=== PATIENT | male | born 1940 | race Caucasian/White ===

== ENCOUNTER 2018-01-13 15:17 | Observation (INO) | payer OTHER ==
--- NOTE | 2018-01-13 16:33 | RAD REPORT ---
EXAM DESCRIPTION: RAD - Chest Single View - 01/13/2018 4:24 pm CLINICAL HISTORY: syncope Chest pain. COMPARISON: No comparisons FINDINGS: Portable technique limits examination quality. The lungs are emphysematous but grossly clear. The heart is normal in size. No displaced fractures. IMPRESSION: Mild COPD.
--- NOTE | 2018-01-13 16:49 | RAD REPORT ---
EXAM DESCRIPTION: CT - Head Brain Wo Cont - 01/13/2018 4:34 pm CLINICAL HISTORY: SYNCOPE Dizziness, drowsiness COMPARISON: No comparisons TECHNIQUE: All CT scans are performed using dose optimization technique as appropriate and may inclu de automated exposure control or mA/KV adjustment according to patient size. FINDINGS: No intracranial hemorrhage, hydrocephalus or extra-axial fluid collection.No areas of brai n edema or evidence of midline shift. Mild fluid is seen in the ethmoid air cells and sphenoid sinus. The paranasal sinuses and mastoids ar e otherwise clear. The calvarium is intact. IMPRESSION: No acute intracranial abnormality.
[2018-01-13 16:51] LABS: Absolute Lymphocytes (CBC) 1.4 K/uL (0.7-4.9); Absolute Monocytes 0.6 K/uL (0.1-1.3); Absolute Neutrophil 7.2 K/uL (1.8-8.0); Basophils % 0.6 % (0-1.3); Eosinophils % 1.6 % (0-4.4); Hematocrit 36.4 % (39.6-49.0); Lymphocytes % 14.7 % (15.3-44.8); MCV 96.3 fL (80-100); MPV 8.8 fL (7.6-11.3); Monocytes % 6.8 % (3.3-12.3); RBC Red Blood Cell Count 3.78 M/uL (4.33-5.43)
[2018-01-13 16:52] LABS: Protime INR 0.95
[2018-01-13 17:04] LABS: ALT/SGPT 13 U/L (12-78); AST/SGOT 18 U/L (15-37); Albumin 3.1 g/dL (3.4-5.0); Alkaline Phosphatase 93 U/L (45-117); BUN Blood Urea Nitrogen 15 mg/dL (7-18); Bicarbonate 28 mmol/L (21-32); Bilirubin Direct 0.2 mg/dL (0-0.2); Bilirubin Total 0.3 mg/dL (0.2-1.0); Glucose Level 107 mg/dL (74-106); Magnesium 1.9 mg/dL (1.8-2.4); NT PRO-BNP 150 pg/mL (<450); Potassium 3.5 mmol/L (3.5-5.1); Protein, Total 7.6 g/dL (6.4-8.2); Sodium Level 139 mmol/L (136-145); Troponin (Emerg Dept Use Only) < 0.02 ng/mL (0.0-0.045)
--- NOTE | 2018-01-13 17:20 | EDPHYS ---
Physician Documentation [facility] Name: Jose Moncada Age: 77 yrs Sex: Male : 1940 Arrival Date: 01/13/2018 Time: 15:26 Bed 23 Private MD: Zhou Milner R ED Physician Tony Dunbar HPI: 01/13 15:50 This 77 yrs old Male presents to ER via EMS with complaints of Dizziness. cp 15:50 The patient presents with dizziness, lightheadedness. Onset: The symptoms/episode cp began/occurred today. Associated signs and symptoms: Pertinent positives: syncope, Pertinent negatives: abdominal pain, chest pain, diaphoresis, focal weakness, numbness, palpitations, seizure, shortness of breath, vomiting. Severity of symptoms: in the emergency department the symptoms have resolved. Patient's baseline: Neuro: alert and fully oriented, Motor: no deficits, Ambulation: walks without assistance, Speech: normal. Historical: - Allergies: 15:28 No Known Allergies; ed1 - Home Meds: 15:28 None [Active]; ed1 - PMHx: 15:28 None; ed1 - PSHx: 15:28 Appendectomy; eye surgery; skin cancer removal; ed1 - Immunization history:: Adult Immunizations up to date. - Social history:: Smoking status: Patient uses tobacco products, smokes one pack cigarettes per day. - Ebola Screening: : Patient negative for fever greater than or equal to 101.5 degrees Fahrenheit, and additional compatible Ebola Virus Disease symptoms Patient denies exposure to infectious person Patient denies travel to an Ebola-affected area in the 21 days before illness onset No symptoms or risks identified at this time. ROS: 15:55 Constitutional: Negative for body aches, chills, fever, poor PO intake. cp 15:55 Eyes: Negative for injury, pain, redness, and discharge. cp 15:55 ENT: Negative for drainage from ear(s), ear pain, sore throat, difficulty swallowing, difficulty handling secretions. 15:55 Cardiovascular: Negative for chest pain, edema, palpitations. 15:55 Respiratory: Negative for cough, shortness of breath, wheezing. 15:55 Abdomen/GI: Negative for abdominal pain, nausea, vomiting, and diarrhea, black/tarry stool, rectal bleeding. 15:55 Back: Negative for pain at rest, pain with movement. 15:55 : Negative for urinary symptoms. 15:55 Skin: Negative for cellulitis, rash. 15:55 Neuro: Positive for dizziness, syncope, Negative for altered mental status, gait disturbance, headache, seizure activity, weakness. 15:55 All other systems are negative. Exam: 16:00 ECG was reviewed by the Attending Physician. cp 16:02 Constitutional: The patient appears in no acute distress, alert, awake, cp non-diaphoretic, non-toxic, well developed, well nourished. 16:02 Head/Face: Normocephalic, atraumatic. Eyes: Pupils equal round and reactive to light, cp extra-ocular motions intact. Lids and lashes normal. Conjunctiva and sclera are non-icteric and not injected. Cornea within normal limits. Periorbital areas with no swelling, redness, or edema. ENT: Nares patent. No nasal discharge, no septal abnormalities noted. Tympanic membranes are normal and external auditory canals are clear. Oropharynx with no redness, swelling, or masses, exudates, or evidence of obstruction, uvula midline. Mucous membranes moist. Neck: Trachea midline, no thyromegaly or masses palpated, and no cervical lymphadenopathy. Supple, full range of motion without nuchal rigidity, or vertebral point tenderness. No Meningismus. Chest/axilla: Normal chest wall appearance and motion. Nontender with no deformity. No lesions are appreciated. 16:02 Cardiovascular: Rate: normal, Rhythm: regular, Pulses: Pulses are 2+ in right radial artery and left radial artery. Heart sounds: murmur, not appreciated, Edema: is not appreciated, JVD: is not appreciated. 16:02 Respiratory: the patient does not display signs of respiratory distress, Respirations: normal, no use of accessory muscles, no retractions, no splinting, no tachypnea, labored breathing, is not present, Breath sounds: are clear throughout, no decreased breath sounds, no stridor, no wheezing. 16:02 Abdomen/GI: Inspection: abdomen appears normal, Bowel sounds: active, all quadrants, Palpation: abdomen is soft and non-tender, in all quadrants, rebound tenderness, is not appreciated, involuntary guarding, is elicited in all quadrants. 16:02 Back: pain, is absent, ROM is normal. 16:02 Skin: cellulitis, is not appreciated, rash 16:02 Neuro: Orientation: is normal, Mentation: is normal, Memory: is normal, Cerebellar function: is grossly normal, Motor: moves all fours, strength is normal, Sensation: is normal. Vital Signs: 15:28 BP 149 / 94; Pulse 82; Resp 14; Temp 98(O); Pulse Ox 99% on R/A; Weight 68.04 kg (R); ed1 Height 5 ft. 11 in. (180.34 cm) (R); Pain 0/10; 15:56 BP 131 / 85 LA Supine (auto/reg); Pulse 82; Resp 18; ed1 15:56 BP 118 / 85 LA Sitting (auto/reg); Pulse 88; ed1 15:57 BP 120 / 80 LA Standing (auto/reg); Pulse 95; ed1 16:53 BP 142 / 88; Pulse 85; Resp 17; Pulse Ox 97% on R/A; Pain 0/10; ed1 15:28 Body Mass Index 20.92 (68.04 kg, 180.34 cm) ed1 MDM: 15:43 Patient medically screened. cp 16:00 Differential diagnosis: cardiac arrhythmia, generalized weakness, hypovolemia, cp idiopathic dizziness, sepsis, TIA, vertigo. 17:18 Physician consultation: Zhou Milner MD was called at 17:18, was contacted at 17:18, regarding admission, to the telemetry unit. patient's condition, would like consultation with Dr. Fernandez. 17:20 Data reviewed: vital signs, nurses notes, lab test result(s), EKG, radiologic studies, cp CT scan, plain films. 17:20 Test interpretation: by ED physician or midlevel provider: ECG, plain radiologic cp studies. Counseling: I had a detailed discussion with the patient and/or guardian regarding: the historical points, exam findings, and any diagnostic results supporting the discharge/admit diagnosis, lab results, radiology results. 01/13 16:01 Order name: Basic Metabolic Panel; Complete Time: 17:05 cp 01/13 17:06 Interpretation: Normal except: GLUC 107; GFR 65. cp 01/13 16:01 Order name: CBC with Diff; Complete Time: 17:05 cp 01/13 17:06 Interpretation: Normal except: RBC 3.78; HGB 12.5; HCT 36.4; RDW 17.8; ROJELIO% 76.3; LYM% cp 14.7. 01/13 16:01 Order name: LFT's; Complete Time: 17:05 cp 01/13 17:18 Interpretation: Normal except: ALB 3.1; GLOB 4.5; A/G 0.7. cp 01/13 16:01 Order name: Magnesium; Complete Time: 17:05 cp 01/13 16:01 Order name: NT PRO-BNP; Complete Time: 17:05 cp 01/13 16:01 Order name: PT-INR; Complete Time: 17:05 cp 01/13 16:01 Order name: Troponin (emerg Dept Use Only); Complete Time: 17:05 cp 01/13 16:01 Order name: XRAY Chest (1 view); Complete Time: 16:49 cp 01/13 16:49 Interpretation: Report review. cp 01/13 16:01 Order name: CT Head Brain wo Cont; Complete Time: 16:50 cp 01/13 16:50 Interpretation: Report reviewed. cp 01/13 18:58 Order name: Urine Microscopic Only ed1 01/13 19:09 Order name: Urine Dipstick--Ancillary (enter results) ms 01/13 19:24 Order name: Urine Dipstick-Ancillary; Complete Time: 05:27 EDMS 01/13 19:34 Order name: Urine Microscopic Only; Complete Time: 05:27 EDMS 01/13 15:42 Order name: Orthostatics; Complete Time: 15:57 cp 01/13 15:42 Order name: EKG; Complete Time: 15:43 cp 01/13 15:42 Order name: EKG - Nurse/Tech; Complete Time: 15:57 cp 01/13 16:01 Order name: Cardiac monitoring; Complete Time: 16:03 cp 01/13 16:01 Order name: IV Saline Lock; Complete Time: 16:02 cp 01/13 16:01 Order name: Labs collected and sent; Complete Time: 16:22 cp 01/13 16:01 Order name: O2 Per Protocol; Complete Time: 16:02 cp 01/13 16:01 Order name: O2 Sat Monitoring; Complete Time: 16:02 cp 01/13 17:19 Order name: Urine Dipstick-Ancillary (obtain specimen); Complete Time: 18:57 cp EC:00 Rate is 79 beats/min. Rhythm is regular. WA interval is normal. QRS interval is cp prolonged at 124 msec. QT interval is normal. Interpreted by me. Reviewed by me. Administered Medications: 17:56 Drug: Lovenox 40 mg Route: Sub-Q; Site: right lower abdomen; ed1 18:57 Follow up: Response: No adverse reaction ed1 18:57 Drug: Rocephin - (cefTRIAXone) 1 grams Route: IVPB; Infused Over: 30 mins; Site: right ed1 antecubital; 20:19 Follow up: Response: No adverse reaction; IV Status: Completed infusion ed1 Disposition: 01/14 13:20 Co-signature as Attending Physician, Tony Dunbar MD I agree with the assessment and kdr plan of care. Disposition: 01/13/18 17:19 Hospitalization ordered by Zhou Milner for Observation. Preliminary diagnosis are Syncope and collapse, Urinary tract infection, site not specified. - Bed requested for Telemetry/MedSurg (observation). - Status is Observation. ed1 - Condition is Stable. - Problem is new. - Symptoms have improved. UTI on Admission? Yes Signatures: Dispatcher [employer] EDRI Mini Dominguez RN RN dw Tony Dunbar MD MD [facility] Kelsy Herring LVN [employer]GE ed1 Cornelio Sandhu PA PA cp Corrections: (The following items were deleted from the chart) 01/13 18:47 17:19 Hospitalization Ordered by Zhou Milner MD for Observation. Preliminary diagnosis cp is Syncope and collapse. Bed requested for Telemetry/MedSurg (observation). Status is Observation. Condition is Stable. Problem is new. Symptoms have improved. UTI on Admission? No. cp 19:10 18:47 01/13/2018 17:19 Hospitalization Ordered by Zhou Milner MD for Observation. dw Preliminary diagnosis is Syncope and collapse; Urinary tract infection, site not specified. Bed requested for Telemetry/MedSurg (observation). Status is Observation. Condition is Stable. Problem is new. Symptoms have improved. UTI on Admission? Yes. cp 20:19 19:10 01/13/2018 17:19 Hospitalization Ordered by Zhou Milner MD for Observation. ed1 Preliminary diagnosis is Syncope and collapse; Urinary tract infection, site not specified. Bed requested for Telemetry/MedSurg (observation). Status is Observation. Condition is Stable. Problem is new. Symptoms have improved. UTI on Admission? Yes. dw
--- NOTE | 2018-01-13 17:20 | ER ---
Nurse's Notes [facility] Name: Jose Moncada Age: 77 yrs Sex: Male : 1940 Arrival Date: 01/13/2018 Time: 15:26 Bed 23 Private MD: Zhou Milner R Diagnosis: Syncope and collapse;Urinary tract infection, site not specified Presentation: 01/13 15:26 Presenting complaint: EMS states: He was leaving his apartment and when he was getting ed1 in the car he felt very dizzy and had to sit down. Transition of care: patient was not received from another setting of care. Onset of symptoms was January 13, 2018. Risk Assessment: Do you want to hurt yourself or someone else? Patient reports no desire to harm self or others. Initial Sepsis Screen: Does the patient meet any 2 criteria? No. Patient's initial sepsis screen is negative. Does the patient have a suspected source of infection? No. Patient's initial sepsis screen is negative. Care prior to arrival: IV initiated. 20 GA, in the right antecubital area, Oxygen administered. via nasal cannula. 15:26 Method Of Arrival: EMS: [facility] ed1 15:34 Acuity: EMELY 3 iw Triage Assessment: 15:28 General: Appears in no apparent distress. Behavior is calm, cooperative. Pain: Denies ed1 pain. Neuro: Level of Consciousness is awake, alert, obeys commands, Oriented to person, place, time, situation, Reports dizziness. Historical: - Allergies: 15:28 No Known Allergies; ed1 - Home Meds: 15:28 None [Active]; ed1 - PMHx: 15:28 None; ed1 - PSHx: 15:28 Appendectomy; eye surgery; skin cancer removal; ed1 - Immunization history:: Adult Immunizations up to date. - Social history:: Smoking status: Patient uses tobacco products, smokes one pack cigarettes per day. - Ebola Screening: : Patient negative for fever greater than or equal to 101.5 degrees Fahrenheit, and additional compatible Ebola Virus Disease symptoms Patient denies exposure to infectious person Patient denies travel to an Ebola-affected area in the 21 days before illness onset No symptoms or risks identified at this time. Screenin:29 Abuse screen: Denies threats or abuse. Denies injuries from another. Nutritional ed1 screening: No deficits noted. Tuberculosis screening: No symptoms or risk factors identified. Fall Risk None identified. Assessment: 15:29 General: Appears in no apparent distress. Behavior is calm, cooperative. Pain: Denies ed1 pain. Neuro: Level of Consciousness is awake, alert, obeys commands, Oriented to person, place, time, situation, Reports dizziness, Denies weakness blurred vision headache. Cardiovascular: Denies chest pain, Heart tones S1 S2 present. Respiratory: Airway is patent Respiratory effort is even, unlabored, Respiratory pattern is regular, symmetrical, Breath sounds are clear bilaterally. GI: Patient currently denies diarrhea, nausea, vomiting. : No signs and/or symptoms were reported regarding the genitourinary system. EENT: No signs and/or symptoms were reported regarding the EENT system. Derm: Skin is intact, is thin, with poor turgor Skin is dry, Skin is normal, Skin temperature is warm. Musculoskeletal: Circulation, motion, and sensation intact. 15:32 General: The previous assessment is accurate, call light remains within reach. ss 16:53 Reassessment: Patient appears in no apparent distress at this time. No changes from ed1 previously documented assessment. Patient and/or family updated on plan of care and expected duration. Pain level reassessed. Patient is alert, oriented x 3, equal unlabored respirations, skin warm/dry/pink. Patient denies pain at this time. 17:31 Reassessment: Pt reports that he self cath's. ed1 Vital Signs: 15:28 BP 149 / 94; Pulse 82; Resp 14; Temp 98(O); Pulse Ox 99% on R/A; Weight 68.04 kg (R); ed1 Height 5 ft. 11 in. (180.34 cm) (R); Pain 0/10; 15:56 BP 131 / 85 LA Supine (auto/reg); Pulse 82; Resp 18; ed1 15:56 BP 118 / 85 LA Sitting (auto/reg); Pulse 88; ed1 15:57 BP 120 / 80 LA Standing (auto/reg); Pulse 95; ed1 16:53 BP 142 / 88; Pulse 85; Resp 17; Pulse Ox 97% on R/A; Pain 0/10; ed1 15:28 Body Mass Index 20.92 (68.04 kg, 180.34 cm) ed1 ED Course: 15:26 Patient arrived in ED. ed1 15:26 Zhou Milner MD is Private Physician. ed1 15:28 Arm band placed on right wrist. ed1 15:29 Patient has correct armband on for positive identification. Placed in gown. Bed in low ed1 position. Call light in reach. Side rails up X2. quality assurance monitor chassis on. Pulse ox on. NIBP on. 15:29 Maintain EMS IV. Dressing intact. Good blood return noted. Site clean \T\ dry. Gauge \T\ ed 1 site: 20g right a/c. 15:34 Triage completed. iw 15:42 Cornelio Sandhu PA is PHCP. cp 15:42 Tony Dunbar MD is Attending Physician. cp 15:45 Kelsy Herring LVN is Primary Nurse. ed1 15:59 EKG done, by clinical dental technician. reviewed by Cornelio RADER. sm3 16:22 X-ray completed. Portable x-ray completed in exam room. Patient tolerated procedure ml well. 16:24 XRAY Chest (1 view) In Process Unspecified. EDMS 16:34 CT Head Brain wo Cont In Process Unspecified. EDMS 17:19 Zhou Milner MD is Hospitalizing Provider. cp 20:18 No provider procedures requiring assistance completed. Patient admitted, IV remains in ed1 place. intact, No redness/swelling at site. Administered Medications: 17:56 Drug: Lovenox 40 mg Route: Sub-Q; Site: right lower abdomen; ed1 18:57 Follow up: Response: No adverse reaction ed1 18:57 Drug: Rocephin - (cefTRIAXone) 1 grams Route: IVPB; Infused Over: 30 mins; Site: right ed1 antecubital; 20:19 Follow up: Response: No adverse reaction; IV Status: Completed infusion ed1 Outcome: 17:19 Decision to Hospitalize by Provider. cp 20:18 Admitted to Tele accompanied by tech, family with patient, via stretcher, room 231, ed1 with chart, Report called to LEOLA Garduno 20:18 Condition: stable 20:18 Discharge instructions given to patient, family, Instructed on the need for admit, Demonstrated understanding of instructions. 20:19 Patient left the ED. ed1 Signatures: Dispatcher [employer] Catia Sanchez RN RN iw Lopez, Melissa ml Smirch, Maryellen, RN RN ss Kelsy Herring, STRUCTURAL RIGGER STRUCTURAL RIGGER ed1 Cornelio Sandhu PA PA cp Montes, Shakira 3
[2018-01-13] MEDS ORDERED: ENOXAPARIN 40 MG/0.4 ML SQ ONE (18:00)
[2018-01-13] MEDS ORDERED: ONDANSETRON 4 MG/2 ML VIAL IV PRN (18:05)
[2018-01-13] MEDS ORDERED: CEFTRIAXONE/SWI 1gm 1 GM/10 ML SYR ONE (18:56)
[2018-01-13 19:24] LABS: Urine Blood 2+ (NEG); Urine Glucose NEGATIVE (NEG); Urine Protein 2+ (NEG); Urine Specific Gravity 1.025 (1.005-1.030); Urine pH 5.5 (5.0-7.0)
[2018-01-13 19:33] LABS: Urine Bacteria >50 /HPF (NONE SEEN); Urine RBC <5 /HPF (NONE SEEN)
[2018-01-13 19:34] LABS: Urine Culture Reflex Order REFLEXED; Urine Mucus SLIGHT /HPF (NONE SEEN)
[2018-01-13] MEDS: ACETAMINOPHEN 500 MG TAB PO PRN (21:03)
--- NOTE | 2018-01-13 23:29 | EKG ---
Test Date: 2018-01-13 Test Time: 15:54:12 Writing Tutor: GEORGES MEASUREMENT RESULTS: Intervals: Rate: 79 SC: 156 QRSD: 124 QT: 428 QTc: 490 [place]bec: P: 70 SC: 156 QRS: 48 T: 47 INTERPRETIVE STATEMENTS: Normal sinus rhythm Incomplete right bundle branch block Borderline ECG Compared to ECG 02/02/2006 21:22:44 Incomplete right bundle branch block now present Electronically Signed On 01-13-18 23:28:11 CDT by Robin Fernandez
[2018-01-14] MEDS: ACETAMINOPHEN 500 MG TAB PO PRN ×3 (04:28→16:30)
[2018-01-14 05:33] LABS: Absolute Monocytes 0.9 K/uL (0.1-1.3); Absolute Neutrophil 6.3 K/uL (1.8-8.0); Basophils % 0.5 % (0-1.3); Eosinophils % 1.8 % (0-4.4); Hematocrit 34.5 % (39.6-49.0); Lymphocytes % 21.3 % (15.3-44.8); MCH 33.3 pg (27.0-35.0); MCV 96.8 fL (80-100); Monocytes % 9.2 % (3.3-12.3); RBC Red Blood Cell Count 3.57 M/uL (4.33-5.43)
[2018-01-14 05:41] LABS: Potassium 3.5 mmol/L (3.5-5.1)
--- NOTE | 2018-01-14 08:26 | RAD REPORT ---
EXAM DESCRIPTION: - CP - 01/13/2018 10:41 pm CLINICAL HISTORY: Syncope COMPARISON: None. TECHNIQUE: Real-time sonographic evaluation of both carotid systems was performed. Welch scale and Do ppler interrogation were performed with waveform tracing bilaterally. FINDINGS: Normal high resistance waveforms are noted in both external carotid arteries. The common c arotid arteries and internal carotid arteries show normal low resistance waveforms. Calcified and noncalcified plaquing changes are present in the right carotid bulb. No significant lum inal narrowing at this site. More significant calcified plaquing seen in the right external carotid a rtery. Any resulting external carotid stenosis is generally not clinically significant. Prominent nuris cified plaquing changes in the proximal right internal carotid artery. No significant luminal narrowi ng identifiable. Mild plaquing changes are present in the left common carotid artery near the bulb. N o significant left internal carotid artery plaquing. Peak systolic and end diastolic velocity values and the ICA/CCA ratios are in the non-hemodynamically significant range. Antegrade flow seen in both vertebral arteries. Velocity values and ratios were recorded and are retained in the patient's imaging records. IMPRESSION: Calcified and noncalcified plaquing changes are present more prominent in the right bulb and ICA compared to the left. No left-sided stenosis and the right-sided plaquing changes do not cause hemodynamically significant narrowing.
[2018-01-14] MEDS ORDERED: ASPIRIN EC 81 MG TAB PO SCH (09:00)
[2018-01-14] MEDS ORDERED: CEFTRIAXONE 1 GM/NS 50 ML 1 GM/50 ML BAG IV SCH (09:00)
[2018-01-14] MEDS ORDERED: CEFTRIAXONE/SWI 1gm 1 GM/10 ML SYR IV SCH (09:00)
--- NOTE | 2018-01-14 14:07 | CON ---
History Of Present Illness: Mr. Moncada is in the hospital because he fainted. He did not eat much breakfast. There was a piece of pecan pie, did not drink much. Got called by a family member, so he went to the gate to open it up, so she could get into his house. [place] As he was waiting at the gate, he was standing still and felt himself get dizzy, fell to the ground, wo ke up immediately. No tonic-clonic motion, and since he has been in our hospital, he has had an EKG that is unremarkable, carotid Doppler, CAT scan of the head, telemetry that is within normal limits. All his troponins are normal. The patient does not have diabetes, hypertension. No history of stro ke, myocardial infarction, vascular disease. Takes no medications. He has had several falling and f ainting spells over the last several years, but seemed extremely unlikely to start using a cane or a walker or take any precautions. His last fall was roughly 1 week ago. He injured his knees and he i s asking me to please order a knee x-ray. Physical Examination: General: He is 5 feet 11 inches, 149 pounds. He is not emaciated, but he is quite thin. Alert, estephanie ented, pleasant, not in distress. Neck: No carotid bruit. Lungs: Clear. Heart: Within normal limits. Abdomen: Soft. Extremities: No cyanosis, clubbing, or edema. Distal pulses are normal. Impression: Mr. Moncada fainted because of relative dehydration, standing in the heat. I do not thi nk there is a cardiac or a neurological cause of syncope, but basically vascular collapse. I do not think any further cardiac workup is indicated at this point. I believe the patient could be discharg ed whenever Dr. Hood is ready. I took the liberty of ordering knee x-rays, mostly at the patient's r equest. Two views of both knees will be ordered and reviewed by the radiologist. Thank you very much for your kind referral of Mr. Moncada. I will follow him with you. ANTOLIN/FAUZIA Voice ID: [id number] Report ID: [id number]
--- NOTE | 2018-01-14 15:56 | RAD REPORT ---
EXAM DESCRIPTION: RAD - Knee Left 3 View - 01/14/2018 3:32 pm CLINICAL HISTORY: Knee pain COMPARISON: None. FINDINGS: No fracture, dislocation or periosteal reaction.Small joint effusion is seen. Slight narro wing of the medial compartment noted. Prominent meniscal calcifications are present. Spurring is pres ent at the quadriceps tendon attachment site. No suspicious soft tissue finding. IMPRESSION: Minimal joint effusion with no acute bone or joint finding. Degenerative change is present in the joint and meniscal tissue. Clinical concerns for internal derangement or occult bony injury could be further assessed with MR im aging.
--- NOTE | 2018-01-14 15:58 | RAD REPORT ---
EXAM DESCRIPTION: RAD - Knee Right 3 View - 01/14/2018 3:32 pm CLINICAL HISTORY: Knee pain COMPARISON: None. FINDINGS: No fracture, dislocation or periosteal reaction.No joint effusion seen. Very minimal narro wing of the medial compartment noted. No abnormal spurring seen. Proximal fibula shows evidence for o ld fracture remodeling. No meniscal calcifications or other internal joint abnormality evident. IMPRESSION: No acute bone or joint finding. Minimal degenerative change. Clinical concerns for internal derangement or occult bony injury could be further assessed with MR im aging.
--- NOTE | 2018-01-15 00:36 | HP ---
Date of Admission: 01/13/2018 Chief Complaint: Dizziness, near syncope. History Of Present Illness: This patient while trying to get up and walk to the car, felt dizzy and almost passed out. Ever since the patient had no further symptoms. The patient was seen in the [facility] room. He had a CAT scan of the head, chest x-ray, and carotid ultrasound. The patient has charla e right-sided block, however, it is not significant hemodynamically. The patient claims to have had similar episode few weeks before this particular episode. The patient is on no medication currently. He does not have any chest pain, shortness of breath, or other symptoms. Past Medical History: History of prostatic issues. Surgical History: Positive for appendectomy, skin cancer surgery, and eye surgery. Allergies: NONE. Home Medicines: None. Review of Systems: No history of fever, chills, rigors. Physical Examination: General: Revealed 77-year-old male, fully alert, ambulating. HEENT: Otherwise negative. Neck: Supple. JVD negative. Carotids, good upstroke. No bruit. Chest: Clear. Heart: Regular. Abdomen: Soft. Extremities: No edema. Neurological: Negative. Laboratory: Chem profile and CBC negative. CAT scan of the head, chest, carotid ultrasound normal. Urinalysis showed evidence of pyuria and bacteriuria. Assessment: 1.Dizziness and near syncope. 2.History of chronic prostatic issues. Plan: The patient is due to have echocardiogram and x-ray of the knees, after which the patient's fu rther management will be decided. YONAS/FAUZIA Voice ID: [id number]
== END 2018-01-14 18:26 | disposition home or self-care (01) ==
LOC: ER 15:17 → ERHOLD 17:34 → 2ND 19:44
PROVIDERS: ADMIT Internal Medicine; ATTEND Internal Medicine
DX: R42 Dizziness and giddiness (principal); R55 Syncope and collapse
CPT/HCPCS: 36415; 70450; 71045; 73562 ×2; 80048 ×2; 80076; 83735; 83880; 84484 ×3; 85025 ×2; 85610; 87077; 87086; 87088; 87186; 93005; 93880; 96365; 96372; 99285; G0378 ×2; J0696; J1650; 81003; 81015

== ENCOUNTER 2019-08-15 06:41 | Day surgery (SDC) | payer OTHER ==
[2019-08-14 10:40] LABS: Basophils % 1.1 % (0-1.3); Hematocrit 40.6 % (39.6-49.0); Lymphocytes % 21.9 % (15.3-44.8); MPV 8.1 fL (7.6-11.3); RBC Red Blood Cell Count 4.55 M/uL (4.33-5.43)
[2019-08-14 10:50] LABS: Potassium 4.9 mmol/L (3.5-5.1)
--- NOTE | 2019-08-14 11:24 | RAD REPORT ---
EXAM DESCRIPTION: RAD - Chest Pa And Lat (2 Views) - 08/14/2019 11:16 am CLINICAL HISTORY: Preop Chest pain. COMPARISON: Chest Single View dated 01/13/2018 FINDINGS: The lungs are clear. The heart is normal in size. No displaced fractures. IMPRESSION: No acute or concerning finding suspected.
[2019-08-15] MEDS ORDERED: Ringers Lactate 1,000 ML IV ONE (07:55)
[2019-08-15] MEDS ORDERED: CEFAZOLIN/SWI 1gm 1 GM/10 ML SYR ONE (07:56)
[2019-08-15] MEDS ORDERED: LIDOCAINE 1% MPF 5 ML VIAL ONE (08:32)
[2019-08-15] MEDS ORDERED: FENTANYL CITR 100 MCG/2 ML ONE (08:32)
[2019-08-15] MEDS ORDERED: propofoL 200 MG/20 ML VIAL IV ONE (08:32)
[2019-08-15 09:50] VITALS: TEMP 97.6
[2019-08-15 10:25] VITALS: BP 126/73; O2SAT 96
--- NOTE | 2019-08-15 20:14 | EKG ---
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
--- NOTE | 2019-08-15 20:23 | OP ---
Date of Procedure: 08/15/2019 Surgeon: Simón Devries MD Preoperative Diagnosis: Inflamed sebaceous cyst, right back. Postoperative Diagnosis: Inflamed sebaceous cyst, right back. Procedure: Wide excision, right back mass 8 x 4 cm with layered closure. Length of closure is 8 cm. Estimated Blood Loss: Minimal. Specimens: Culture and sensitivity and sebaceous cyst. Findings: As above. Anesthesia: MAC. Complications: None. Disposition: Patient tolerated the procedure, in stable condition, taken to Recovery in good general condition. Procedure In Detail: Patient was brought to the OR and placed in supine position. MAC anesthesia wa s given. The patient was placed in the left lateral position, prepped and draped in the usual steril e fashion. Marcaine 0.5% was infiltrated locally. A 15-blade was used to make an 8 x 4 cm incision to excise this large 3.5 cm diameter sebaceous cyst with necrotic centers all the way down to the babak p subcutaneous tissue and excised and sent to Pathology after being labeled. Wound irrigated, bleedi ng controlled with cautery. Flaps were created and 2-0 chromic used to approximate the subcutaneous tissue. After Darrell drain quarter-inch was placed through with 3-0 nylon, then 3-0 nylon was used to close the skin. Sterile dressing was applied. Patient was awakened and taken to Recovery in good general condition. Discharge Note: The patient will go to Day Surgery and home when stable. Condition: Stable. Discharge Instructions: Resume home medications and diet. Activity as tolerated. No heavy lifting. Remove outer dressing in 2 days. Shower. Keep wound clean and dry. Follow up in my office in 2 w eetn. Call for appointment. Tylenol No. 3 one tablet p.o. q.4 p.r.n. pain, Cipro 500 mg p.o. q.12. /MODL Voice ID: [id number] Report ID: [id number]
== END 2019-08-15 10:23 | disposition home or self-care (01) ==
LOC: OR 06:41
PROVIDERS: ATTEND Surgery
PROC: 0JB70ZZ Excision of Back Subcutaneous Tissue and Fascia, Open Approach (ICD-10-PCS; principal; 2019-08-15 08:15)
DX: L72.3 Sebaceous cyst (principal); J44.9 Chronic obstructive pulmonary disease, unspecified; F17.210 Nicotine dependence, cigarettes, uncomplicated; Z80.9 Family history of malignant neoplasm, unspecified
CPT/HCPCS: 93005; 87070; 85025; 80048; 36415; 87205; 88304; 87075; 71046; 11406; J2704; J3010; J0690; J7120; 88305